=== PATIENT | male | born 1960 | race African-American/Black ===

== ENCOUNTER 2020-11-17 01:16 | Inpatient (IN) | payer OTHER, MEDICAID ==
[~2020-11-17] VITALS: Ht 170.2 cm; Wt 70.3 kg
[2020-11-17 01:28] VITALS: BP 145/79
[2020-11-17 01:41] LABS: ABSOLUTE NEUTROPHILS 4.9 thou/uL (1.4-8.2); BASOPHILS 0.5 % (0.0-2.0); EOSINOPHILS 1.4 % (0.0-3.0); HEMATOCRIT 38.2 % (42.0-52.0); HEMOGLOBIN 12.5 gm/dL (14.0-18.0); LYMPHOCYTES 17.7 % (24.0-44.0); MCH 28.1 pg (26.0-34.0); MCHC 32.7 g/dL (28.0-37.0); MCV 86.1 fL (80.0-100.0); MONOCYTES 12.1 % (1.0-8.0); PLATELET COUNT 295 thou/uL (150-400); POLYS 68.3 % (36.0-66.0); RBC 4.44 mil/uL (4.50-6.00); WBC 7.2 thou/uL (4.0-11.0)
[2020-11-17 01:56] LABS: URINE BILIRUBIN NEGATIVE (Negative); URINE BLOOD NEGATIVE (Negative); URINE CLARITY CLEAR; URINE COLOR YELLOW; URINE GLUCOSE-RANDOM* NEGATIVE (Negative); URINE KETONES TRACE (Negative); URINE LEUKOCYTES-REFLEX NEGATIVE (Negative); URINE PROTEIN (DIPSTICK) TRACE (Negative); URINE SPECIFIC GRAVITY 1.025 (1.005-1.035); URINE UROBILINOGEN 0.2 E.U./dl (0.2-1.0)
[2020-11-17 02:03] LABS: APTT 28.2 Seconds (24.5-32.8); PROTIME 10.5 Seconds (9.3-11.4)
[2020-11-17 02:07] LABS: URINE NITRITE-REFLEX POSITIVE (Negative)
[2020-11-17 02:13] LABS: BACTERIA-REFLEX >30 Many /HPF (None Seen); CRYSTALS None Seen /LPF (None Seen); HYALINE CASTS 0-3 Few /LPF (None Seen); MUCUS 0-3 Light strn/LPF (None Seen); SQUAMOUS None Seen /LPF (0-3); TRANSITIONAL EPITHEL CELL 0-3 Few /LPF (None Seen); URINE RBC 0-2 Rare /HPF (0-2); URINE WBC-REFLEX 0-5 Rare /HPF (0-5)
[2020-11-17] MEDS ORDERED: MELATONIN3 MG PO (02:21)
[2020-11-17] MEDS ORDERED: METHADONE HCL 110 M1 PO (02:22)
[2020-11-17] MEDS ORDERED: LYRICA100 MG PO (02:22)
[2020-11-17] MEDS ORDERED: DULOXETINE HCL30 MG PO (02:22)
[2020-11-17] MEDS ORDERED: ASPIR 8181 MG PO (02:22)
[2020-11-17] MEDS ORDERED: HUMALOG100 UNIT/1 SUBQ (02:23)
[2020-11-17] MEDS ORDERED: NITROSTAT0.4 MG SUBLING (02:23)
[2020-11-17] MEDS ORDERED: BRILINTA90 MG PO (02:23)
[2020-11-17] MEDS ORDERED: DOK100 MG PO (02:23)
[2020-11-17] MEDS ORDERED: LIPITOR 40 MG T40 M1 PO (02:23)
[2020-11-17] MEDS ORDERED: METOPROLOL SUCC50 MG PO (02:23)
[2020-11-17] MEDS ORDERED: ISOSORBIDE MONO30 M1 PO (02:23)
[2020-11-17] MEDS ORDERED: FLONASE 0.05%50 MCG NARES (02:24)
[2020-11-17] MEDS ORDERED: LISINOPRIL5 MG PO (02:24)
--- NOTE | 2020-11-17 02:48 | NUR ---
Med list not in paperwork. senior care called at this time and asked to fax over med list
[2020-11-17 02:52] LABS: CALCIUM 8.8 mg/dL (8.5-10.1); CREATININE 1.2 mg/dL (0.7-1.3); POTASSIUM 4.4 mmol/L (3.5-5.1)
[2020-11-17 02:58] LABS: ALBUMIN 3.3 g/dL (3.4-5.0); TOTAL BILIRUBIN 0.4 mg/dL (0.2-1.0); TOTAL PROTEIN 7.7 g/dL (6.4-8.2)
[2020-11-17] MEDS ORDERED: ACETAMINOPHEN500 M1 PO (03:13)
[2020-11-17] MEDS ORDERED: MAALOX ADVANCE355 M1 PO (03:15)
[2020-11-17] MEDS ORDERED: GUAIFENESIN DM S5 ML PO (03:17)
[2020-11-17] MEDS ORDERED: ONDANSETRON HCL4 M3 PO (03:19)
[2020-11-17] MEDS ORDERED: APHEN325 M1 PO (03:20)
[2020-11-17] MEDS ORDERED: ADVIL200 M1 PO (03:22)
--- NOTE | 2020-11-17 10:20 | EKG ---
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
[2020-11-17] MEDS ORDERED: VOLTAREN GEL 1100 G1 TOP (10:34)
[2020-11-17 11:37] LABS: HEMATOCRIT 32.4 % (42.0-52.0)
[2020-11-17 11:38] LABS: HEMOGLOBIN 10.5 gm/dL (14.0-18.0)
--- NOTE | 2020-11-17 18:41 | NUR ---
VIVIAN PROVIDED FOR PATIENT, PT FALLING ASLEEP WHILE EATING. WHEN ASKED, PT STATES "I EAT AT MY OWN PACE" WILL CONTINUE TO ATTEMPT TO GET PATIENT TO EAT
[2020-11-17 19:17] VITALS: BP 136/61
[2020-11-17 20:09] VITALS: BP 141/66
[2020-11-17 20:25] VITALS: BP 148/71
[2020-11-18 03:25] LABS: HEMATOCRIT 35.1 % (42.0-52.0); HEMOGLOBIN 11.2 gm/dL (14.0-18.0); MCH 27.7 pg (26.0-34.0); MCHC 31.8 g/dL (28.0-37.0); MCV 87.2 fL (80.0-100.0); RBC 4.02 mil/uL (4.50-6.00); RDW 15.1 % (10.5-14.5)
[2020-11-18 03:27] LABS: CALCIUM 8.7 mg/dL (8.5-10.1); CREATININE 1.1 mg/dL (0.7-1.3); MAGNESIUM 1.7 mg/dL (1.8-2.4); POTASSIUM 3.8 mmol/L (3.5-5.1)
[2020-11-18 05:25] VITALS: BP 152/79
[2020-11-18 07:11] VITALS: BP 153/88
--- NOTE | 2020-11-18 09:06 | NUR ---
RECEIVED REPORT FROM ED RN.PT ARRIVED TO ROOM 208.PATIENT A/O X 3.DENIES PAIN AND SOB.MONITOR SHOWS SR.POC CONTINUED.
[2020-11-18 11:31] VITALS: BP 152/63
[2020-11-18 16:00] VITALS: BP 155/96
--- NOTE | 2020-11-18 16:34 | NUR ---
Spoke with patient who admits from [facility] admits with GI bleed. Patient reports he was at not at rehab hospital. Patient admitted to [facility] from [facility] for CVA. plan from rehab to dc to sisters home. Sp with sister alerted therapy evals in process and recommend return to [facility]. Sister agrees. DC city planner to update [facility]. Likely will need new auth. Sp with liason from facility.
--- NOTE | 2020-11-18 17:13 | NUR ---
[facility] RECEIVED CONFIRMATION AND LEFT MSG WITH RICKY IN ADM.
[2020-11-18 19:45] VITALS: BP 102/51; BP 155/87
--- NOTE | 2020-11-18 22:10 | NUR ---
Assumed pt care at 1900. Pt is alert and oriented. No sign of distress noted in pt. Denies pain, pt is stable. Fall precaution in place. Assessment completed and documented. Scheduled meds administered, tolerated PO intake. Pt is transferred to . Continue to monitor, no further needs at this time.
[2020-11-18 22:42] VITALS: BP 151/84
--- NOTE | 2020-11-19 02:52 | NUR ---
PT TRANSFER TO THE UNIT FROM CCU IN STABLE CONDITION AND PT WAS ADMITTED FOR UPPER GI BLEED.PT IS A/O X4.PT IS A STANDBY ASSIST TO TOILET.PT IS ACCUCHECK ACHS.PT NPO MIDNIGHT FOR EGD TODAY.SKIN INTACT.WILL CONTINUE TO MONITOR PER POC
[2020-11-19 04:40] VITALS: BP 152/90
[2020-11-19 05:36] LABS: HEMATOCRIT 34.2 % (42.0-52.0); HEMOGLOBIN 10.9 gm/dL (14.0-18.0); MCH 27.5 pg (26.0-34.0); MCHC 31.8 g/dL (28.0-37.0); MCV 86.6 fL (80.0-100.0); RBC 3.95 mil/uL (4.50-6.00); RDW 15.2 % (10.5-14.5); WBC 7.4 thou/uL (4.0-11.0)
[2020-11-19 06:16] LABS: CALCIUM 8.7 mg/dL (8.5-10.1); MAGNESIUM 1.6 mg/dL (1.8-2.4)
[2020-11-19 08:09] VITALS: BP 145/78
[2020-11-19 11:30] VITALS: BP 132/65
[2020-11-19 12:00] VITALS: BP 135/71
--- NOTE | 2020-11-19 13:42 | NUR ---
Received awake on bed. Due medication given as prescribed. On telemetry; no complains and signs of chest pain, crushing sensation and heaviness. On room air. Vital signs stable. On nothing per orem, pt informed and aware. On blood sugar monitoring, taken and recorded accordingly. Assisted in ADLs. Complained of nausea and vomited- PRN anti emetic given as prescribed. Continent of bowel and bladder, able to use urinal and go to the bathroom with standby assist. With NS at 100cc/hr, infusing well at L AC; with R hand- SL. Falls bundle in place. For EGD today, consent to be signed. To continue monitoring patient. Pt brought down to GI lab via wheelchair; tolerated procedure well; back to room safely.
--- NOTE | 2020-11-19 15:09 | NUR ---
PT HAD EGD DONE THIS DAY. THERAPY TEAM INDICATING THAT PT WOULD BENEFIT FROM CONTINUED ACUTE REHAB STAY. 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 [facility] INDICATING THAT THEY HAD ANTICIAPTED PT DISCHARGING HOME WIHT SISTER THIS PAST WEDNESDAY. THEY INDICATED THAT THEY NEED MORE THERAPY NOTES AND WILL NEED THEIR DIRECTORS TO REVIEW AND RESUBMIT FOR AUTH. CM TEAM ASKED THAT THEY DO SO. CM NOTIFIED PHYSICIAN. CM TO FOLLOW INDICATED WITH DC PLANNING.
[2020-11-19 16:11] VITALS: BP 153/96
--- NOTE | 2020-11-20 03:49 | NUR ---
VSS-AFEBRILE. LUNGS CLEAR-ROOM AIR. NO C/O PAIN OVERNIGHT. NO EPISODES OF NAUSEA OR VOMITING. CALLS APPROPRIATELY WHEN NEEDING ASSISTANCE. FALL PRECAUTIONS IN PLACE.
[2020-11-20 07:04] LABS: HEMATOCRIT 32.3 % (42.0-52.0); HEMOGLOBIN 10.3 gm/dL (14.0-18.0); MCHC 31.8 g/dL (28.0-37.0); MCV 87.9 fL (80.0-100.0); RBC 3.67 mil/uL (4.50-6.00); RDW 15.2 % (10.5-14.5); WBC 6.7 thou/uL (4.0-11.0)
[2020-11-20 07:13] LABS: CALCIUM 8.2 mg/dL (8.5-10.1); CREATININE 1.1 mg/dL (0.7-1.3); MAGNESIUM 1.6 mg/dL (1.8-2.4); POTASSIUM 3.8 mmol/L (3.5-5.1)
[2020-11-20 08:40] VITALS: BP 130/72
--- NOTE | 2020-11-20 11:57 | NUR ---
Received awake on bed. Due medications given as prescribed, able to swallow meds w/o difficulty. On room air. On regular diet- tolerating well; no nausea, no vomiting and no abdominal pain noted. Assisted in ADls. On blood sugar monitoring, taken and recorded accordingly. On telemetry; no complains and signs of chest pain, crushing sensation and heaviness. Continent of bowel and bladder, able to use urinal and go to the toilet with standby assists with gait belt and walker- falls bundle in place. With NS at 100cc/hr, infusing well at R hand. Pt seen and examined by Dr Ko and NITIN Harris today- informed that pt did not have any nausea or vomiting today; possible discharge- CM informed, for re evaluation for [facility]- a/w recommendations. To continue monitoring patient.
[2020-11-20 15:28] VITALS: BP 131/72
--- NOTE | 2020-11-20 16:09 | NUR ---
CM FAXED OVER UPDATED THERAPY NOTES FROM TODAY AND PROG NOTE. THEY ARE BEING REVIEWED BY [facility] INSPECTOR SHELLS. CM TO FOLLOW UP ABOUT HOPEFUL RETURN TO ACUTE REAHB. PT IS MEDCALLY STABLE TO TRANSITION TO ACUTE REHAB.
[2020-11-20 20:06] VITALS: BP 145/90
--- NOTE | 2020-11-21 04:02 | NUR ---
ASSUMED CARE OF PT AT 1900HRS. PT AOX4 WITH SOME CONFUSION. FALL PRECAUTION IN PLACE. PT DENIED PAIN, NAUSEA OR SOA. ASSESSMENT CHARTED. PT RAN SR ON TELE THIS SHIFT. PT WAS ABLE TO GET COMFORTABLE AND SLEEP PART OF THE SHIFT. VSS AND NO S/S OF ACUTE DISTRESS. WILL CONTINUE TO MONITOR.
[2020-11-21 05:34] LABS: HEMATOCRIT 33.7 % (42.0-52.0); HEMOGLOBIN 10.9 gm/dL (14.0-18.0); MCH 28.3 pg (26.0-34.0); MCHC 32.5 g/dL (28.0-37.0); MCV 87.1 fL (80.0-100.0); RBC 3.87 mil/uL (4.50-6.00)
[2020-11-21 06:16] LABS: CALCIUM 8.4 mg/dL (8.5-10.1); CREATININE 1.1 mg/dL (0.7-1.3); MAGNESIUM 1.6 mg/dL (1.8-2.4); POTASSIUM 3.8 mmol/L (3.5-5.1)
[2020-11-21 07:15] VITALS: BP 132/83
[2020-11-21 15:51] VITALS: BP 135/84
--- NOTE | 2020-11-21 16:06 | PATH ---
[facility] [address] [place] [address] PATHOLOGY RPT PROCEDURE Name: MIRTHA BARNES Room #: 458-P ADM IN M.R.#: [id number] Admission: 11/17/20 Date of : 60 Discharge: Report #: [id number] Path Case #: [id number] [facility] Accession Number: [id number] . 01 Material submitted: . gastrointestinal site - BX ANTRAL R/O H.PYLORI . 01 Clinician provided ICD-10: K92.0 N39.0 . 01 Clinical history: . COFFEE GROUND EMESIS GI BLEED GASTRIC ULCER;GASTRITIS . 02 Diagnosis: Gastric mucosa, antrum, endoscopic biopsy: - Mild chronic active gastritis. - Negative for intestinal metaplasia or atrophy. - Negative for Helicobacter pylori (properly-controlled immunohistochemical stain performed). . (IUV:mml; 11/21/2020) QLM 11/21/2020 1204 Local . 02 Comment: An intensive search for Helicobacter pylori-like organisms is negative. Absence of such organisms does not entirely exclude the possibility and may be due to sampling. Other possible etiologies may include chemical gastritis, autoimmune gastritis, gastritis associated with inflammatory bowel disease. Please correlate with clinical, endoscopic, and microbiological studies if clinically indicated. . (IUV:mml; 11/21/2020) . 02 Electronically signed: . Sulma Pal MD, Pathologist NPI- [id number] . 01 Gross description: . The specimen is received in formalin, labeled "Mirtha Nikolai, biopsy antrum, R/O H. pylori". Received is a segment of pale chu soft tissue measuring 0.6 cm in maximum dimensions. The specimen is submitted entirely in cassette A1. (CAA; 11/20/2020) QAC/QAC 11/20/[address] [address] PATHOLOGY RPT PROCEDURE Name: MIRTHA BARNES Room #: 458-P [facility] IN [facility].#: [id number] Admission: 11/17/20 Date of : 60 Discharge: Report #: [id number] Path Case #: [id number] . 02 Pathologist provided ICD-10: K29.50 . 02 CPT . 099800, [id number] Specimen Comment: A courtesy copy of this report has been sent to [phone] Specimen Comment: Report sent to Performed at: 01 [facility] [address], [place], [place] [id number] MD Jigar Pantoja MD Phone: [phone] Performed at: [address] [id number] MD Sulma Pal MD Phone: [phone]
--- NOTE | 2020-11-21 16:15 | NUR ---
Assumed pt care at 7am.Pt in bed resting without c/o.Assessment completed.vss. Dr Ko here asked pt if he wanted to dc home or snf but pt prefered to dc to [facility].Pt acuity at present was too low for previous rehab place and should lookm into moving to snf.nursing services manager will assist pt with placement.Pt eats and drinks without difficulty.No verbal c/o.Will continue to monitor.
[2020-11-21 20:06] VITALS: BP 156/89
--- NOTE | 2020-11-22 04:52 | NUR ---
ASSSUMED CARE OF PT AT 1900HRS. PT AOX3-4 AND LETS NEEDS BE KNOWN. FALL PRECAUTION IN PLACE. PT RAN SR ON TELE. PT HAD 2X GREEN COLORED EMISIS THIS SHIFT. PRN MEDICATION PROVIDED. PT DENIED PAIN OR SOA. ASSESSMENT CHARTED. VSS AND NO S/S OF ACUTE SDISTRESS. WILL CONTINUE TO MONIOR.
[2020-11-22 07:22] VITALS: BP 134/83
--- NOTE | 2020-11-22 09:28 | NUR ---
Pt seen for LOS, eating breakfast at time of visit. Appetite was decreased over past few days but notes he is feeling hungry this am. Denies any recent wt loss. Previously noted with coffee ground emesis, EGD done 11/19 indicating duodenitis and gastric ulcer. Pt with no GI complaints this am, though nausea noted overnight. Tolerating current diet, continue PPI. Pt remains low nutritional risk with current interventions.
--- NOTE | 2020-11-22 10:54 | NUR ---
FAXED REFERRAL TO [facility] SPOKE WITH VAISHNAVI IN ADM THEY CAN ACCEPT CLINICALLY AND WILL SUBMIT FOR AUTH PT IS DC READY TODAY.
[2020-11-22 11:53] VITALS: BP 126/81
[2020-11-22] MEDS ORDERED: PROTONIX40 M4 PO (12:11)
[2020-11-22] MEDS ORDERED: KEFLEX500 M1 PO (12:11)
--- NOTE | 2020-11-22 14:00 | NUR ---
CM MET WITH PT AT BEDSIDE THIS DAY. PT INDICATED HE WANTED REFERRAL SENT TO [facility] [place] REFERRAL S[place]. FACILITY INDICATED THEY ACCEPTED MEDICALLY BUT THAT THEY WERE OON WITH PT'S INSURANCE. CM FOLLOWED UP WITH PT AND HE ASKED THAT REFERRAL BE SENT [facility] [place] REFERRAL SENT. CM TO FOLLOW INDICATED WITH DC PLANNING.
--- NOTE | 2020-11-22 14:37 | NUR ---
FAXED REFERRAL TO [facility] RECEIVED CONFIRMATION AND LEFT MSG WITH ELZA IN ADM TO NOT SUBMIT FOR AUTH.FAMILY CONSIDERING OTHER FACILITIES.
--- NOTE | 2020-11-22 14:52 | NUR ---
ASSUMED CARE OF PATIENT AFTER REPORT. ASSESSMENT CHARTED. MEDICATIONS ADMINISTERED PER EMAR. VSS. PATIENT IS A&OX3 AND PLEASANT. C/O GENERALIZED PAIN RELIEVED BY DOSE OF METHADONE. PATIENT TOLERATED DIET WELL, PARTICIPATED IN PT/OT AND DID WELL. NO SIGNS/SYMPTOMS OF DISTRESS NOTED. CARDIAC RHYTHM IS NORMAL. PATIENT MAKES NEEDS KNOWN AND IS CHECKED ON FREQUENTLY. AWAITING ON PLACEMENT FOR PATIENT. FALL PRECAUTIONS IN PLACE. WILL CONTINUE TO MONITOR AND FOLLOW PLAN OF CARE
[2020-11-22 16:25] VITALS: BP 117/80
[2020-11-22 19:52] VITALS: BP 141/86
[2020-11-23 00:30] VITALS: BP 139/81
--- NOTE | 2020-11-23 04:59 | NUR ---
ASSUMED CARE OF PT AT 1900. PT IS A/O X3 AND IS UP SBA TO THE BR. APPEARS TO BE UNSTEADY ON FEET BUT REFUSES WALKER IN ROOM. HAS RIGHT SIDED WEAKNESS. DENIES ANY C/O PAIN OR DISCOMFORT. VSS. MEDICATIONS GIVEN PER MAR. FALL PRECAUTIONS IN PLACE, CALL LIGHT IS WITHIN REACH. WILL CONTINUE TO MONITOR.
[2020-11-23 07:39] VITALS: BP 130/72
[2020-11-23 09:24] VITALS: BP 130/72
--- NOTE | 2020-11-23 11:38 | NUR ---
PT DISCHARGING TODAY TO [facility] FAXED DC ORDERS/SUMMARY TO FACILITY RECEIVED CONFIRMATION SPOKE WITH MORALES IN ADM SHE ARRANGED TRANSPORT FOR [id number] TODAY. SPOKE WITH PT'S SISTER (LALA) SHE IS IN AGREEMENT WITH DC PLAN. NOTIFIED UNIT AND CHART COPY PER US. RN TO CALL REPORT TO [phone].
--- NOTE | 2020-11-23 13:03 | NUR ---
ASSUMED PT CARE THIS AM. PT HAS NO COMPLAINTS OF PAIN. TOOK MEDS WELL WITHOUT COMPLAINT. CALLS APPROPRIATELY WHEN NEEDED. USES A URINAL. NO NAUSEA NOTED.
== END 2020-11-23 16:30 | DRG 378 ==
LOC: ER 01:16 → 2N 03:20 → EROBS 03:20 → 2N 20:02 → 4W 11-18 22:11
PROVIDERS: Emergency Medicine; Nurse Practitioner Family; ADMIT Internal Medicine; ATTEND Internal Medicine
PROC: 0DB68ZX Excision of Stomach, Via Natural or Artificial Opening Endoscopic, Diagnostic (ICD-10-PCS; principal; 2020-11-19)
DX: K25.4 Chronic or unspecified gastric ulcer with hemorrhage (principal); N39.0 Urinary tract infection, site not specified; I69.351 Hemiplegia and hemiparesis following cerebral infarction affecting right dominant side; I25.10 Atherosclerotic heart disease of native coronary artery without angina pectoris; K29.81 Duodenitis with bleeding; E11.40 Type 2 diabetes mellitus with diabetic neuropathy, unspecified; E78.5 Hyperlipidemia, unspecified; Z20.822 Contact with and (suspected) exposure to COVID-19; I50.9 Heart failure, unspecified; I25.5 Ischemic cardiomyopathy; I11.0 Hypertensive heart disease with heart failure; E11.51 Type 2 diabetes mellitus with diabetic peripheral angiopathy without gangrene; G89.29 Other chronic pain; F14.10 Cocaine abuse, uncomplicated; D50.0 Iron deficiency anemia secondary to blood loss (chronic); K44.9 Diaphragmatic hernia without obstruction or gangrene; Z79.899 Other long term (current) drug therapy; Z79.82 Long term (current) use of aspirin; Z79.4 Long term (current) use of insulin; Z95.1 Presence of aortocoronary bypass graft; Z95.810 Presence of automatic (implantable) cardiac defibrillator; I25.2 Old myocardial infarction
CPT/HCPCS: 10045; 10081; 62110; 62900; 70005